=== PATIENT | female | born 1955 | race African-American/Black ===

== ENCOUNTER 2018-05-11 12:29 | Emergency (ER) | payer OTHER ==
[~2018-05-11] VITALS: Ht 154.9 cm; Wt 131.1 kg
[~2018-05-11 12:29] MED LIST: AMLODIPINE BESY10 MG PO; CARAFATE1 GM/10 ML PO; COMBIGAN EYE DRO5 ML OU; FUROSEMIDE40 MG PO; HYDROCODON-ACE1 EAC9 PO; LISINOPRIL40 MG PO; LYRICA200 MG PO; LYRICA75 MG PO; NOVOLOG MI100 UNITS/ SQ; OMEPRAZOLE40 MG PO; TIZANIDINE HCL4 M1 PO; TRAVATAN Z5 ML OP; TRAZADONE; ZOLPIDEM TARTRA10 MG PO
[2018-05-11] MEDS ORDERED: ORPHENADRINE CITRATE 30 MG/ML VIAL IM ONE (14:30)
[2018-05-11] MEDS ORDERED: KETOROLAC TROMETHAMINE 60 MG/2 ML VIAL IM ONE (14:30)
[2018-05-11 15:59] VITALS: BP 163/98
== END 2018-05-11 16:00 | disposition home or self-care (01) ==
LOC: ER 12:29
DX: M54.5 Low back pain (principal); S39.012A Strain of muscle, fascia and tendon of lower back, initial encounter; E11.9 Type 2 diabetes mellitus without complications; I50.9 Heart failure, unspecified; I10 Essential (primary) hypertension; E78.5 Hyperlipidemia, unspecified; Z85.3 Personal history of malignant neoplasm of breast
CPT/HCPCS: 99283; J1885; J2360

== ENCOUNTER 2020-05-26 12:59 | Emergency (ER) | payer MEDICARE, OTHER ==
[~2020-05-26] VITALS: Ht 154.9 cm; Wt 131.5 kg
[2020-05-26] MEDS ORDERED: LIDOCAINE VISC 2% SOLN 15 ML UDC PO ONE (14:30)
[2020-05-26] MEDS ORDERED: ONDANSETRON HCL 4 MG ORAL DISINTEGRATING TAB PO ONE (14:30)
--- OUTSIDE RECORDS SUMMARY | 2020-05-26 14:37 | XMS REPORT | Continuity of Care Document ---
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 02/23/2016 [facility] HEMATOLOGY PT 13.9 12.0 - 14.7 02/23/2016 [facility] BLOOD BANK RESULTS Antibody Scrn Negative (02/23/16 6:30 AM) 02/23/2016 [facility] BLOOD BANK RESULTS ABO/Rh AB POS 02/23/2016 [facility] Pathology Reports No Data Provided for This Section Diagnostic Reports Report Value Date Source ED Abdomen/Pelvis IV contrast only CT Patient Name: JANNET GALVAN : 1955; Age: 61 years y/o Female MR: [id number] Study: ED Abdomen/Pelvis IV contrast only CT 08/04/2017 8:17 PM [employer] Ordering Physician: Clinical Indication: Left lower quadrant abdominal pain; Comparison: None TECHNIQUE: Helical imaging was performed diaphragm through the symphysis with multiplanar reformations obtained. Dual phase imaging was performed through the abdomen and pelvis. IV CONTRAST: 100cc Omnipaque 300 GI CONTRAST: None CT Radiation Dose: DLP = 1931 mGy-cm FINDINGS: LOWER CHEST: The lung bases are clear. SOLID ORGANS: The liver, spleen, pancreas, adrenal glands and kidneys are normal. Gallbladder is surgically absent. Delayed phase images show renal contrast excretion without extravasation. BOWEL: Small bowel is within normal limits. Right lower quadrant appendix shows normal size. A few diverticula arise from the colon. Pericolonic fat planes remain preserved. PERITONEUM: Small bowel and transverse colon protrude into large anterior abdominal hernia. Hernia neck is 12.2 cm at its largest dimension on axial image 61. No free intraperitoneal fluid or air. RETROPERITONEUM: No adenopathy. The aorta is normal. PELVIS: No pelvic mass. The urinary bladder is normal. MUSCULOSKELETAL: Left T11 vertebral body shows nonspecific 0.9 x 1.4 cm sclerotic lesion on sagittal image 79. IMPRESSION: Large anterior abdominal hernia contains small bowel and transverse colon without obstruction. SL: [id number] 08/04/2017 [facility] Chest 1view DX EXAM: XR CHEST 1 VIEW DATE: 07/15/2017 11:23 PM CDT INDICATION: Chest pain. COMPARISON: 06/14/2007. TECHNIQUE: A single AP view of the chest was obtained. FINDINGS: No focal consolidation or pneumothorax is identified. The cardiomediastinal silhouette is within normal limits. The costophrenic recesses are sharp and without effusion. No acute osseous abnormality is noted. IMPRESSION: No acute cardiopulmonary abnormality. SL: [id number] 07/15/2017 [facility] Consultation Notes No Data Provided for This Section Discharge Summaries No Data Provided for This Section History and Physicals No Data Provided for This Section Vital Signs Vital Sign Value Date Comments Source Systolic (mm Hg) 147 08/06/2017 [facility] Diastolic (mm Hg) 69 08/06/2017 [facility] Respitory Rate 18 08/06/2017 [facility] Systolic (mm Hg) 147 08/06/2017 [facility] Diastolic (mm Hg) 89 08/06/2017 [facility] Respitory Rate 17 08/06/2017 [facility] Systolic (mm Hg) 132 08/06/2017 [facility] Diastolic (mm Hg) 76 08/06/2017 [facility] Respitory Rate 19 08/06/2017 [facility] Respitory Rate 23 08/05/2017 [facility] Systolic (mm Hg) 142 08/05/2017 [facility] Diastolic (mm Hg) 91 08/05/2017 [facility] Respitory Rate 17 08/05/2017 [facility] Systolic (mm Hg) 138 08/05/2017 [facility] Diastolic (mm Hg) 80 08/05/2017 [facility] Respitory Rate 20 08/05/2017 [facility] Systolic (mm Hg) 137 08/05/2017 [facility] Diastolic (mm Hg) 100 08/05/2017 [facility] Temperature Oral (F) 98.0 F 08/05/2017 [facility] Heart Rate 80 08/05/2017 [facility] Weight 130.909 08/04/2017 [facility] Height 154.94 cm 08/04/2017 [facility] BMI Calculated 54.53 08/04/2017 [facility] Temperature Oral (F) 98.2 F 08/04/2017 [facility] Heart Rate 65 08/04/2017 [facility] Height 154.94 cm 07/30/2017 [facility] BMI Calculated 54.98 07/30/2017 [facility] Weight 131.989 07/30/2017 [facility] Temperature Oral (F) 98.3 F 07/30/2017 [facility] Heart Rate 102 07/30/2017 [facility] Temperature Oral (F) 98 F 07/16/2017 [facility] Systolic (mm Hg) 143 07/16/2017 [facility] Diastolic (mm Hg) 98 07/16/2017 [facility] Systolic (mm Hg) 111 07/16/2017 [facility] Diastolic (mm Hg) 71 07/16/2017 [facility] Temperature Oral (F) 98 F 07/16/2017 [facility] Heart Rate 92 07/16/2017 [facility] Respitory Rate 18 07/16/2017 [facility] Weight 132.273 07/16/2017 [facility] BMI Calculated 55.1 07/16/2017 [facility] Height 154.94 cm 07/16/2017 [facility] Heart Rate 102 07/16/2017 [facility] Respitory Rate 20 07/16/2017 [facility] Systolic (mm Hg) 147 07/16/2017 [facility] Diastolic (mm Hg) 81 07/16/2017 [facility] Temperature Oral (F) 98.3 F 07/16/2017 [facility] Systolic (mm Hg) 147 02/23/2016 [facility] Diastolic (mm Hg) 71 02/23/2016 [facility] Systolic (mm Hg) 147 02/23/2016 [facility] Diastolic (mm Hg) 71 02/23/2016 [facility] Systolic (mm Hg) 147 02/23/2016 [facility] Diastolic (mm Hg) 71 02/23/2016 [facility] Temperature Oral (F) 98.0 F 02/23/2016 [facility] BMI Calculated 55.86 02/23/2016 [facility] Weight 134.091 02/23/2016 [facility] Height 154.94 cm 02/23/2016 [facility] Encounters Location Location Details Encounter Type Encounter Number Reason For Visit Attending Provider ADM Date DC Date Status Source [facility] Bedded Outpatient [id number] Robertomaria victoria Osullivan 02/23/2016 02/23/2016 [facility] Recurring [id number] Mary Anne Beckwith 07/10/2017 08/09/2017 [facility] Emergency [id number] Bo Lawler 07/16/2017 07/16/2017 [facility] Emergency [id number] Madi Guillen 08/04/2017 08/05/2017 [facility] Bedded Outpatient [id number] Mary Anne Beckwith 08/06/2017 08/06/2017 [facility] Outpatient [id number] Mary Anne Beckwith 08/14/2017 08/14/2017 [facility] Outpatient [id number] Bo Guzmán 10/09/2017 10/09/2017 [facility] Procedures Procedure Code Date Perfomer Comments Source Caesarean section [id number] [facility] Cholecystectomy [id number] [facility] st Hernia repair [id number] [facility] st Operation [id number] [facility] st Assessment and Plan No Data Provided for This Section Plan of Care No Data Provided for This Section Social History Social History Date Source Social History TypeResponse Substance Abuse Use: Past. Type: Cocaine. Recreational Drug Route: Inhaled, Intravenous. Alcohol Past Smoking Status Former smoker; Type: Cigarettes; Exposure to Tobacco Smoke None; Cigarette Smoking Last 365 Days No; Reg Smoking Cessation Counseling No entered on: 08/06/17 07/30/2017 [facility] No data available for this section 02/23/2016 [facility] Family History No Data Provided for This Section Advance Directives No Data Provided for This Section Functional Status No Data Provided for This Section
--- OUTSIDE RECORDS SUMMARY | 2020-05-26 14:38 | XMS REPORT | Continuity of Care Document ---
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 2019-04-23 00:00:00 84 mm[Hg] [facility] Height 2019-04-23 00:00:00 61 [in_i] [facility] BMI (Body Mass Index) 2019-04-23 00:00:00 53.7 kg/m2 [facility] BP Systolic 2019-04-23 00:00:00 142 mm[Hg] [facility] Body Weight 2019-04-23 00:00:00 284 [lb_av] [facility] BP Diastolic 2019-03-02 00:00:00 84 mm[Hg] [facility] Height 2019-03-02 00:00:00 61 [in_i] [facility] BMI (Body Mass Index) 2019-03-02 00:00:00 54.4 kg/m2 [facility] BP Systolic 2019-03-02 00:00:00 138 mm[Hg] [facility] Body Weight 2019-03-02 00:00:00 288 [lb_av] [facility] BP Diastolic 2019-02-19 00:00:00 100 mm[Hg] [facility] Height 2019-02-19 00:00:00 61 [in_i] [facility] BMI (Body Mass Index) 2019-02-19 00:00:00 54.4 kg/m2 [facility] BP Systolic 2019-02-19 00:00:00 152 mm[Hg] [facility] Body Weight 2019-02-19 00:00:00 288 [lb_av] [facility] BP Diastolic 2019-01-21 00:00:00 64 mm[Hg] [facility] Height 2019-01-21 00:00:00 61 [in_i] [facility] BMI (Body Mass Index) 2019-01-21 00:00:00 55.6 kg/m2 [facility] BP Systolic 2019-01-21 00:00:00 124 mm[Hg] [facility] Body Weight 2019-01-21 00:00:00 294 [lb_av] [facility] BP Diastolic 2018-12-10 00:00:00 68 mm[Hg] [facility] Height 2018-12-10 00:00:00 61 [in_i] [facility] BMI (Body Mass Index) 2018-12-10 00:00:00 54.6 kg/m2 [facility] BP Systolic 2018-12-10 00:00:00 124 mm[Hg] [facility] Body Weight 2018-12-10 00:00:00 289 [lb_av] [facility] BP Diastolic 2018-11-23 00:00:00 82 mm[Hg] [facility] Height 2018-11-23 00:00:00 61 [in_i] [facility] BMI (Body Mass Index) 2018-11-23 00:00:00 54 kg/m2 [facility] BP Systolic 2018-11-23 00:00:00 126 mm[Hg] [facility] Body Weight 2018-11-23 00:00:00 286 [lb_av] [facility] BP Diastolic 2018-10-30 00:00:00 80 mm[Hg] [facility] Height 2018-10-30 00:00:00 61 [in_i] [facility] BMI (Body Mass Index) 2018-10-30 00:00:00 54.6 kg/m2 [facility] BP Systolic 2018-10-30 00:00:00 126 mm[Hg] [facility] Body Weight 2018-10-30 00:00:00 289 [lb_av] [facility] BP Systolic 2017-09-25 10:20:00 117 mm[Hg] Location: JON Laguerre on: Sitting [facility] BP Diastolic 2017-09-25 10:20:00 77 mm[Hg] Location: JON Laguerre on: Sitting [facility] Height 2017-09-25 10:20:00 61 [in_us] [facility] Weight 2017-09-25 10:20:00 286.0625 [lb_av] [facility] Body Mass Index Calculated 2017-09-25 10:20:00 54.05 kg/m2 [facility] Temperature 2017-09-25 10:20:00 98.6 [degF] Method: Oral [facility] Heart Rate 2017-09-25 10:20:00 85 /min [facility] Systolic (mm Hg) 2017-08-06 15:15:00 [facility] Diastolic (mm Hg) 2017-08-06 15:15:00 [facility] Respitory Rate 2017-08-06 15:15:00 [facility] Systolic (mm Hg) 2017-08-06 15:00:00 [facility]ar rial [facility] Diastolic (mm Hg) 2017-08-06 15:00:00 [facility] Respitory Rate 2017-08-06 15:00:00 [facility] Systolic (mm Hg) 2017-08-06 14:56:00 [facility] Diastolic (mm Hg) 2017-08-06 14:56:00 [facility] Respitory Rate 2017-08-06 14:56:00 [facility] Respitory Rate 2017-08-05 05:30:00 [facility] Systolic (mm Hg) 2017-08-05 05:30:00 [facility] Diastolic (mm Hg) 2017-08-05 05:30:00 [facility] Respitory Rate 2017-08-05 04:30:00 [facility] Systolic (mm Hg) 2017-08-05 04:30:00 [facility] Diastolic (mm Hg) 2017-08-05 04:30:00 [facility] Respitory Rate 2017-08-05 03:30:00 [facility] Systolic (mm Hg) 2017-08-05 03:30:00 [facility] Diastolic (mm Hg) 2017-08-05 03:30:00 [facility] Temperature Oral (F) 2017-08-05 00:10:00 98.0 F [facility] Heart Rate 2017-08-05 00:10:00 [facility] Weight 2017-08-04 18:27:00 [facility] Height 2017-08-04 18:27:00 154.94 cm [facility] BMI Calculated 2017-08-04 18:27:00 [facility] Temperature Oral (F) 2017-08-04 18:27:00 98.2 F [facility] Heart Rate 2017-08-04 18:27:00 [facility] Height 2017-07-30 16:50:00 154.94 cm [facility] BMI Calculated 2017-07-30 16:50:00 [facility] Weight 2017-07-30 16:50:00 [facility] Temperature Oral (F) 2017-07-30 16:50:00 98.3 F [facility] Heart Rate 2017-07-30 16:50:00 [facility] Temperature Oral (F) 2017-07-16 09:46:00 98 F [facility] Systolic (mm Hg) 2017-07-16 09:46:00 [facility] Diastolic (mm Hg) 2017-07-16 09:46:00 [facility] Systolic (mm Hg) 2017-07-16 04:55:00 [facility] Diastolic (mm Hg) 2017-07-16 04:55:00 [facility] Temperature Oral (F) 2017-07-16 04:53:00 98 F [facility] Heart Rate 2017-07-16 04:53:00 [facility] Respitory Rate 2017-07-16 04:53:00 [facility] Weight 2017-07-16 03:25:00 [facility] BMI Calculated 2017-07-16 03:25:00 [facility] Height 2017-07-16 03:25:00 154.94 cm [facility] Heart Rate 2017-07-16 03:25:00 [facility] Respitory Rate 2017-07-16 03:25:00 [facility] Systolic (mm Hg) 2017-07-16 03:25:00 [facility] Diastolic (mm Hg) 2017-07-16 03:25:00 [facility] Temperature Oral (F) 2017-07-16 03:25:00 98.3 F [facility] BP Systolic 2017-07-09 08:51:00 121 mm[Hg] [facility] BP Diastolic 2017-07-09 08:51:00 79 mm[Hg] [facility] Height 2017-07-09 08:51:00 61 [in_us] [facility] Weight 2017-07-09 08:51:00 296 [lb_av] [facility] Body Mass Index Calculated 2017-07-09 08:51:00 55.93 kg/m2 [facility] Heart Rate 2017-07-09 08:51:00 90 /min [facility] Systolic (mm Hg) 2016-02-23 15:30:00 [facility] Diastolic (mm Hg) 2016-02-23 15:30:00 [facility] Systolic (mm Hg) 2016-02-23 15:15:00 [facility] Diastolic (mm Hg) 2016-02-23 15:15:00 [facility] Systolic (mm Hg) 2016-02-23 15:00:00 [facility] Diastolic (mm Hg) 2016-02-23 15:00:00 [facility] Temperature Oral (F) 2016-02-23 14:00:00 98.0 F [facility] BMI Calculated 2016-02-23 11:06:00 [facility] Weight 2016-02-23 11:06:00 [facility] Height 2016-02-23 11:06:00 154.94 cm [facility] Procedures Procedure Date / Time Performed Performing Clinician [facility] e MAMMO, screening, bilateral 2020-05-17 00:00:00 [facility] bone density 2020-05-17 00:00:00 [facility] US, echocardiogram, transthoracic, complete, w/ color flow 2 00:00:00 [facility] bone density 2019-07-26 00:00:00 [facility] X-RAY CERVICAL SPINE 2 OR 3 VIEW 2019-06-08 00:00:00 [facility] MAMMO, screening, bilateral 2019-04-23 00:00:00 [facility] ankle brachial index 2019-04-23 00:00:00 [facility] electrocardiogram 2019-01-21 00:00:00 [facility] Hernia Repair 2019-01-02 00:00:00 [facility] US, ABDOMINAL COMPLETE 2018-12-10 00:00:00 [facility] [[facility]] FOLATE, SERUM 2017-07-10 00:00:00 [facility] [[facility]] PTH, INTACT (WITHOUT CALCIUM) 2017-07-10 00:00:00 [facility] [QL] VITAMIN B1, WHOLE BLOOD 2017-07-10 00:00:00 [facility] [[facility]] VITAMIN E (TOCOPHEROL) 2017-07-10 00:00:00 [facility] [L] Vitamin D, 25-Hydroxy, Total - Esoterix 2017-07-10 00:00:00 [facility] [[facility]] IRON, TOTAL 2017-07-10 00:00:00 [facility] [[facility]] VITAMIN A (RETINOL) 2017-07-10 [facility]] VITAMIN B12 2017-07-10 00:00:00 [facility] [QL] B TYPE NATRIURETIC PEPTIDE (BNP) 2017-06-19 00:00:00 [facility] [[facility]] CMP W/EGFR 2017-06-19 00:00:00 [facility] [[facility]] LIPID PANEL 2017-06-19 00:00:00 [facility] [[facility]] TSH, 3RD GENERATION 2017-06-19 00:00[facility]00 [facility]] CBC (INCLUDES DIFF/PLT) 2017-06-19 00:00:00 [facility] [QL] HEMOGLOBIN A1c 2017-06-19 00:00:00 [facility] [[facility]] MAGNESIUM 2017-06-19 00:00:00 [place] [facility] [[facility]] PROTHROMBIN TIME-INR 2017-06-19 00:00:00 [facility] 2012-09-29 00:00:00 [facility] Breast Surgery 2001-09-29 00:00:00 [facility] Cholecystectomy (Gall Bladder Removal) 1999-09-29 00:00:00 [facility] Caesarean Section 1974-09-29 00:00:00 [facility] Caesarean Section 1971-09-29 00:00:00 [facility] History of sleep study [facility] History of colonoscopy [facility] History of section [facility] History of cholecystectomy [facility] Hernia repair [facility] Plan of Care Planned Activity Planned Date Details Comments Source Diagnostic Test Pending 2020-05-17 00:00:00 HbA1c (hemoglobi n A1c), blood [code = HbA1c (hemoglobin A1c), blood] [facility] 2020-05-17 00:00:00 microalbumin/cre atinine, mass ratio, urine [code = microalbumin/creatinine, mass ratio, urine] [facility] Diagnostic Test Pending 2020-05-17 00:00:00 CMP, serum or pl asma [code = CMP, serum or plasma] [facility] Diagnostic Test Pending 2020-05-17 00:00:00 lipid panel, ser um [code = lipid panel, serum] [facility] Future Appointment 2020-08-16 10:45:00 Medardo Farnsworth Jr [address]; [address], [place] [address] [facility] Encounters Start Date/Time End Date/Time Encounter Type Admission Type Attendi [facility] Care Department Encounter ID Source 2020-05-17 00:00:00 2020-05-17 00:00:00 Medardo Farnsworth Jr, MD: [address], [address], [place] [address], Ph. [facility] [id number] [facility] 2020-03-08 00:00:00 2020-03-08 00:00:00 Ruthie Thomasom: [address] [facility], [address], [place] [address], Ph. [facility] - VM_HOU_Care Management [id number] [facility] 2020-01-24 00:00:00 2020-01-24 00:00:00 Medardo Farnsworth Jr, MD: [address], [address], [place] [address], Ph. [facility] - VM_HOU_Hobby [id number] [facility] 2019-12-06 00:00:00 2019-12-06 00:00:00 Medardo Farnsworth Jr, MD: [address], [address], [place] [address], Ph. [facility] - VM_HOU_Hobby [id number] [facility] 2019-10-25 00:00:00 2019-10-25 00:00:00 Medardo Farnsworth Jr, MD: [address], [address], [place] [address], Ph. [facility] - VM_HOU_Hobby [id number] [facility] 2019-07-26 00:00:00 2019-07-26 00:00:00 Medardo Farnsworth Jr, MD: [address], [facility] [address], [place] [address], Ph. [facility] VFP-Hobby [id number] [facility] 2019-06-08 00:00:00 2019-06-08 00:00:00 Medardo Farnsworth Jr, MD: [address] [facility] [address], [place] [address], Ph. [facility] - VFP-Hobby [id number] [facility] 2019-04-23 00:00:00 2019-04-23 00:00:00 Medardo Farnsworth Jr, MD: [address], [address], [place] [address], Ph. [facility] - [facility] - VFP-Hobby [id number] [facility] 2019-03-02 00:00:00 2019-03-02 00:00:00 Medardo Farnsworth Jr, MD: [address], [address], [place] [address], Ph. [facility] - VFP-Hobby [id number] [facility] 2019-02-19 00:00:00 2019-02-19 00:00:00 Medardo Farnsworth Jr, MD: [address], [address], [place] [address], Ph. [facility] - VFP-Hobby [id number] [facility] 2019-01-21 00:00:00 2019-01-21 00:00:00 Medardo Farnsworth Jr, MD: [address], [address], [place] [address], Ph. [facility] - VFP-Hobby [id number] [facility] 2018-12-10 00:00:00 2018-12-10 00:00:00 Medardo Farnsworth Jr, MD: [address], [address], [place] [address], Ph. [facility] - VFP-Hobby [id number] [facility] 2018-11-23 00:00:00 2018-11-23 00:00:00 Medardo Farnsworth Jr, MD: [address], [place] [address], Ph. [facility] - [facility] - VFP-Hobby [id number] [facility] 2018-10-30 00:00:00 2018-10-30 00:00:00 Medardo Farnsworth Jr, MD: [address], [address], [place] [address], Ph. [facility] - [facility] - VFP-Hobby [id number] [facility] 2018-05-11 12:29:00 2018-05-11 16:00:00 Departed Emergency Room [facility] [id number] [facility] 2017-10-08 18:35:00 2017-10-08 23:59:00 Outpatient Sheyla Guzmán MHSE MHSE [id number] 2017-10-08 18:35:00 2017-10-08 23:59:00 Outpatient Sheyla Guzmán MHSE MHSE [id number] 2017-09-25 10:30:00 2017-09-25 10:30:00 Appointment; MARY ANNE BECKWITH M.D. PARKER, AMANDA, M.D. [facility] [id number] [facility] 2017-08-18 13:45:00 2017-08-18 13:45:00 Appointment; MARY ANNE BECKWITH M.D. PARKER, AMANDA, M.D. [facility] [id number] [facility] 2017-08-13 19:23:00 2017-08-13 23:59:00 Outpatient Carri Beckwith MHSE MHSE [id number] 2017-07-10 11:21:00 2017-08-08 23:59:00 Outpatient Carri Beckwith MHSE MHSE [id number] 2017-08-06 06:24:00 2017-08-06 09:35:00 Outpatient Carri Beckwith MHSE MHSE [id number] 2017-08-04 12:09:00 2017-08-04 23:32:00 Outpatient Pita Guillen MHSE MHSE [id number] 2017-07-15 22:20:00 2017-07-16 04:48:00 Outpatient Katelin Lawler MHSE MHSE [id number] 2017-07-10 11:30:00 2017-07-10 11:30:00 Appointment; MARY ANNE BECKWITH M.D. PARKER, AMANDA, M.D. [facility] UTP [id number] [facility] 2017-07-09 09:20:00 2017-07-09 09:20:00 Appointment; SETH MORAES M.D. ESCOBAR CAMARGO, JORGE, M.D. [facility] UTP [id number] [facility] 2017-07-03 11:00:00 2017-07-03 11:00:00 Appointment; SE, ECHO SE, ECHO UTP UTP [id number] [facility] 2017-06-19 10:20:00 2017-06-19 10:20:00 Appointment; SETH MORAES M.D. ESCOBAR CAMARGO, JORGE, M.D. [facility] UTP [id number] [facility] 2017-06-09 13:00:00 2017-06-09 13:00:00 Appointment; MARY ANNE BECKWITH M.D. PARKER, AMANDA, M.D. [facility] UTP [id number] [facility] 2017-06-03 12:00:00 2017-06-03 12:00:00 Appointment; JOELLEN CEBALLOS ERIK UTP UTP [id number] [facility] 2016-02-23 05:54:00 2016-02-23 10:50:00 Outpatient Roberto Almanza [facility] [id number] Results Test Description Test Time Test Comments Results Result Comments Source - XR KNEE 1 OR 2 V LT 2020-04-19 12:02:00 FAX: Medardo Arreola Jr [phone] [address] [place]: [address] St: REG FAX: Andres Gates MD [phone] Name: JANNET GALVAN [facility] : 1955 Age/S: 64/F [address] Unit #: [id number] Loc: [place] [address] Phys: Andres Zuniga MD Acct: [id number] Dis Date: Status: REG CLI PHONE #: [phone] Exam Date: 04/19/2020 1125 FAX #: [phone] Reason: M25.562 EXAMS: CPT CODE: [id number] XR KNEE 1 OR 2 V LT [address] CLINICAL HISTORY: M25.562 TECHNIQUE: 2 views of the left knee COMPARISON: Left knee radiographs January 01, 2013 FINDINGS/ IMPRESSION: There is worsening joint space narrowing in the left knee, compatible with worsening degeneration. Large marginal osteophytes are present. No joint effusion is seen and there is no fracture. Location: [facility] at 1202 Reported and signed by: Too Canela MD CC: Medardo Farnsworth Jr, MD; Andres Zuniga MD Technologist: Gayle Meier RT(R) Trnscrd Date/Time/By: 04/19/2020 (6998) : By: [email or web address] Orig Print D/T: S: 04/19/2020 (2975) PAGE 1 Signed Report - XR C-SPINE 2-3 VIEWS 2019-08-06 15:45:00 FAX: Medardo Arreola Jr [phone] [facility] [place]: O St: REG -- Name: JANNET GALVAN [facility] : 1955 Age/S: 63/F [address] [facility] Unit #: [id number] Loc: [place] [address] Phys: Medardo Farnsworth Jr, MD Acct: [id number] Dis Date: Status: REG CLI PHONE #: [phone] Exam Date: 08/06/2019 1248 FAX #: [phone] Reason: CERVICAL RAD EXAMS: CPT CODE: [id number] XR C-SPINE 2-3 VIEWS 03869 HISTORY: CERVICAL RAD TECHNIQUE: AP, lateral, and open mouth odontoid views of the cervical spine. COMPARISON: CT of the cervical spine March 01, 2015 FINDINGS: Findings are somewhat limited due to nonvisualization of the C6 and C7 vertebral bodies on the sagittal views. Within the visualized spine and there is no evident fracture or malalignment. There is mild height loss of the C5 vertebral body. Small vertebral body osteophyte are present on C4 and C5. Intervertebral disc spaces are preserved. Prevertebral soft tissues in the lung apices are unremarkable. IMPRESSION: Limited evaluation. Mild degenerative changes in the visualized cervical spine. Location: [facility] at 1545 Reported and signed by: Too Canela MD CC: Medardo Farnsworth Jr, MD Technologist: Dianelys King(R) Trnscrd Date/Time/By: 08/06/2019 (3941) : By: [email or web address] Orig Print D/T: S: 08/06/2019 (4494) PAGE 1 Signed Report Chlamydia trachomatis+Neisseria gonorrho eae rRNA [Presence] in Urine by DNA probe 2019-02-23 10:08:00 Test Item chlamydia trachomatis (urine) molecular assay (test code = chlamydia trachomatis (urine) molecular assay) not detected neisseria gonorrhoeae (urine) molecular assay (test code = neisseria gonorrhoeae (urine) molecular assay) not detected [facility]Neisseria gonorrhoeae rRNA [Presence] in Urine by DNA [id number] 10:08:00* Test Item Value Reference Range Interpretation Comments chlamydia trachomatis (urine) molecular assay (test code = chlamydia trachomatis (urine) molecular assay) not detected neisseria gonorrhoeae (urine) molecular assay (test code = neisseria gonorrhoeae (urine) molecular assay) not detected [facility] Urine by [id number] 06:49:00* Test Item Value Reference Range Interpretation Comments culture, urine, routine (test code = culture, urine, routine) [place] [facility] PracticeB[facility] identified in Urine by [id number] 06:49:00* Test Item Value Reference Range Interpretation Comments culture, urine, routine (test code = culture, urine, routine) see [place] [facility] PracticeReagin Ab [Units/volume] in Serum by [id number] 06:25:00* Test Item Value Reference Range Interpretation Comments RPR (DX) w/refl titer and confirmatory t esting (test code = RPR (DX) w/refl titer and confirmatory testing) non-reactive non-reactive [facility] Ag and abs screen, 4TH gen. w/rflx ([id number]) 2019-02-21 06:25:00* Test Item Value Reference Range Interpretation Comments HIV Ag/Ab, 4TH gen (test code = HIV Ag/Ab, 4TH gen) non-reactive no n-reactive [facility] [Units/volume] in Serum by [id number] 06:25:00* Test Item Value Reference Range Interpretation Comments RPR (DX) w/refl titer and confirmatory t esting (test code = RPR (DX) w/refl titer and confirmatory testing) non-reactive non-reactive [facility] Ag and abs screen, 4TH gen. w/rflx ([id number]) 2019-02-21 06:25:00* Test Item Value Reference Range Interpretation Comments HIV Ag/Ab, 4TH gen (test code = HIV Ag/Ab, 4TH gen) non-reactive no n-reactive [facility]Hemoglobin A1c/Hemoglobin.total in [id number] 16:32:00* Test Item Value Reference Range Interpretation Comments Hemoglobin A1c/Hemoglobin.total in Blood (test code = 4548-4) 6.8 % 1.0-5.7 H average blood glucose (test code = average blood glucose) 148 mg/dL [facility]Hemoglobin A1c/Hemoglobin.total in [id number] 16:32:00* Test Item Value Reference Range Interpretation Comments Hemoglobin A1c/Hemoglobin.total in Blood (test code = 4548-4) 6.8 % 1.0-5.7 H average blood glucose (test code = average blood glucose) 148 mg/dL [facility] [Mass/volume] in Capillary [id number] 11:55:00* Test Item Value Reference Range Interpretation Comments Blood Glucose: mg/dl (test code = Blood Glucose: mg/dl) 125 [facility] [Mass/volume] in Capillary [id number] 11:55:00* Test Item Value Reference Range Interpretation Comments Blood Glucose: mg/dl (test code = Blood Glucose: mg/dl) [address] [place], [place] [address]Urinalysis macro (dipstick) panel - [id number] 11:54:00* Test Item Value Reference Range Interpretation Comments Color Color (test code = Color Color) light yellow Color Appearance (test code = Color Appearance) clear Color Glucose (test code = Color Glucose) negative Color Bilirubin (test code = Color Bilirubin) negative Color Ketones (test code = Color Ketones) trace Color Specific [place] (test code = Color Specific [place]) 1.030 Color Blood (test code = Color Blood) negative Color PH (test code = Color PH) 6.0 Color Protein (test code = Color Protein) 30 Color Urobilinogen (test code = Color Urobilinogen) 0.2 Color Nitrites (test code = Color Nitrites) negative Color Leukocytes (test code = Color Leukocytes) [facility] (dipstick) panel - [id number] 11:54:00* Test Item Value Reference Range Interpretation Comments Color Color (test code = Color Color) light yellow Color Appearance (test code = Color Appearance) clear Color Glucose (test code = Color Glucose) negative Color Bilirubin (test code = Color Bilirubin) negative Color Ketones (test code = Color Ketones) trace Color Specific [place] (test code = Color Specific [place]) 1.030 Color Blood (test code = Color Blood) negative Color PH (test code = Color PH) 6.0 Color Protein (test code = Color Protein) 30 Color Urobilinogen (test code = Color Urobilinogen) 0.2 Color Nitrites (test code = Color Nitrites) negative Color Leukocytes (test code = Color Leukocytes) [facility]Com[facility] 2000 [facility] - Serum or Plasma 2019-01-22 00:00:00* Test Item Value Reference Range Interpretation Comments ALT (test code = ALT) 11 U/L 0-55 AST (test code = AST) 12 U/L 5-34 BUN (test code = BUN) 16.4 mg/dL 9.8-20.1 alk phos (test code = alk phos) 58 unit/L 40-150 glucose (test code = glucose) 117 mg/dL 70-99 H albumin (test code = albumin) 3.5 g/dL 3.5-5.0 creatinine (test code = creatinine) 0.98 mg/dL 0.57-1.11 eGFR non- (test code = eGFR non-vitaliy n mongolian) 58 mL/min/1.73m2 A total bilirubin (test code = total bilirubin) 0.2 mg/dL 0.2-1.2 eGFR - (test code = eGFR - ) >60 sodium (test code = sodium) 141 mEq/L 136-145 potassium (test code = potassium) 4.3 mEq/L 3.5-5.1 chloride (test code = chloride) 103 mmol/L 98-107 total protein (test code = total protein) 7.3 g/dL 6.4-8.3 calcium (test code = calcium) 9.7 mg/dL 8.6-10.4 CO2 (test code = CO2) 26.7 mmol/L 23.0-31.0 anion gap (test code = anion gap) 11 [facility] - Serum or Plasma 2019-01-22 00:00:00* Test Item Value Reference Range Interpretation Comments ALT (test code = ALT) 11 U/L 0-55 AST (test code = AST) 12 U/L 5-34 BUN (test code = BUN) 16.4 mg/dL 9.8-20.1 alk phos (test code = alk phos) 58 unit/L 40-150 glucose (test code = glucose) 117 mg/dL 70-99 H albumin (test code = albumin) 3.5 g/dL 3.5-5.0 creatinine (test code = creatinine) 0.98 mg/dL 0.57-1.11 eGFR non- (test code = eGFR non-vitaliy n mongolian) 58 mL/min/1.73m2 A total bilirubin (test code = total bilirubin) 0.2 mg/dL 0.2-1.2 eGFR - (test code = eGFR - ) >60 sodium (test code = sodium) 141 mEq/L 136-145 potassium (test code = potassium) 4.3 mEq/L 3.5-5.1 chloride (test code = chloride) 103 mmol/L 98-107 total protein (test code = total protein) 7.3 g/dL 6.4-8.3 calcium (test code = calcium) 9.7 mg/dL 8.6-10.4 CO2 (test code = CO2) 26.7 mmol/L 23.0-31.0 anion gap (test code = anion gap) 11 calc [facility] [id number] 16:38:00* Test Item Value Reference Range Interpretation Comments Rate & Rhythm (test code = Rate & Rhythm) sinus regular. QRS (test code = QRS) MI Interval (test code = MI Interval) QRS Duration (test code = QRS Duration) QT Interval (test code = QT Interval) [facility] [id number] 16:38:00* Test Item Value Reference Range Interpretation Comments Rate & Rhythm (test code = Rate & Rhythm) sinus regular. QRS (test code = QRS) MI Interval (test code = MI Interval) QRS Duration (test code = QRS Duration) QT Interval (test code = QT Interval) [facility]:54[facility]* Test Item Value Reference Range Interpretation Comments GLUBED (test code = GLUBED) 151 mg/dL 74-106 H Performed by certified verifying machine operator at [facility] [id number] 07:56:00* Test Item Value Reference Range Interpretation Comments GLUBED (test code = GLUBED) 172 mg/dL 74-106 H Performed by certified verifying machine operator at [facility] URINALYSIS [id number] 05:37:00* Test Item Value Reference Range Interpretation Comments UA COLOR (test code = COLU) LIGHT YELLOW YELLOW UA APPEARANCE (test code = APPU) CLEAR CLEAR UA GLUCOSE DIPSTICK (test code = DGLUU) NEGATIVE mg/dL NEGATIVE UA BILIRUBIN DIPSTICK (test code = BILU) NEGATIVE mg/dL NEGATIVE UA KETONE DIPSTICK (test code = KETU) NEGATIVE mg/dL NEGATIVE UA SPECIFIC GRAVITY (test code = SGU) 1.010 1.001-1.035 UA BLOOD DIPSTICK (test code = BETTY) 3+ (Large) mg/dL NEGATIVE A UA PH DIPSTICK (test code = SYLVESTER) 6.0 5.0-8.0 UA PROTEIN DIPSTICK (test code = PROU) NEGATIVE mg/dL NEGATIVE UA UROBILINIOGEN DIPSTICK (test code = URO) NEGATIVE mg/dL NEGATIVE UA NITRITE DIPSTICK (test code = CAMILO) NEGATIVE NEGATIVE UA LEUKOCYTE ESTERASE W REFLEX (test code = LEUUR) NEGATIVE Lucio/uL NEGATIVE UA WBC (test code = WBCU) 6-10 per HPF 0-5 A UA RBC (test code = RBCU) >20 #/HPF 0-5 A UA EPITHELIAL CELLS (test code = EPIU) FEW per HPF FEW UA BACTERIA (test code = BACU) FEW #/HPF NONE A Urine Source? Clean Catch- XR CHEST 1 [id number] 05:21:00 FAX: Ramesh Cardenas MD [place]: St: ADM FAX: Sharif Medardo Farnsworth [phone] Name: COLEJANNET DODGE [facility] : 1955 Age/S: 63/F [address] [facility] Unit #: [id number] Loc: V.3027 [place] [address] Phys: Ramesh Ojeda MD Acct: [id number] Dis Date: Status: ADM IN PHONE #: [phone] Exam Date: 01/02/2019529 FAX #: [phone] Reason: fever, tachycardia. I nfectious w/u EXAMS: CPT CODE: [id number] XR CHEST 1 V 48090 - XR CHEST 1 V, 01/02/2019 3:40 AM Reason For [place]: fever, tachycardia. Infectious w/u Comparison: October 12, 2016 Location: R16 Findings Low lung volumes and patient habitus limit evaluation LUNGS: Vascular congestion/mild edema noted PLEURA: No pleural effusions CARDIOMEDIASTINAL SILHOUETTE Enlarged IMPRESSION: Exam findings limited as above Enlargement of the cardiac silhouette with vascular congestion and mild edema at 0521 Reported and si gned by: Coty Logan M.D. CC: Ramesh Ojead MD; Medardo Farnsworth Jr, MD Technologist: DWAYNE ANDREWS, RT(R); Tiarra Tse Trnscrd Date/Time/By: 01/02/2019 (05) : By: [email or web address] O rig Print D/T: S: 01/02/2019 (0582) PAGE 1 Signed Report [id number] 02:41:00 * Test Item Value Reference Range Interpretation Comments GLUBED (test code = GLUBED) 135 mg/dL 74-106 H Performed by certified verifying machine operator at [facility] [id number] 20:39:00* Test Item Value Reference Range Interpretation Comments GLUBED (test code = GLUBED) 177 mg/dL 74-106 H Performed by certified verifying machine operator at [facility] [id number] 16:43:00* Test Item Value Reference Range Interpretation Comments GLYCOSYLATED HEMOGLOBIN (HA1C) (test code = GLYHGB) 7.8 % HbA1 4. 8-6.0 H ESTIMATED AVERAGE GLUCOSE (test code = EAG) 177 MG/DL [id number] 16:31:00* Test Item Value Reference Range Interpretation Comments GLUBED (test code = GLUBED) 153 mg/dL 74-106 H Performed by certified verifying machine operator at [facility] [id number] 12:36:00* Test Item Value Reference Range Interpretation Comments GLUBED (test code = GLUBED) 155 mg/dL 74-106 H Performed by certified verifying machine operator at [facility] CBC W/AUTO [id number] 10:40:00* Test Item Value Reference Range Interpretation Comments WHITE BLOOD CELL (test code = WBC) 11.7 K/mm3 4.5-12.5 N RED BLOOD CELL (test code = RBC) 3.60 mill/mm3 3.7-5.2 L HEMOGLOBIN (test code = HGB) 9.7 gram/dL 11.5-15.5 L HEMATOCRIT (test code = HCT) 33.4 % 36.0-46.0 L MEAN CELL VOLUME (test code = MCV) 92.8 fL 80-98 N MEAN CELL HGB (test code = MCH) 26.9 picogram 27.0-33.0 L MEAN CELL HGB CONCETRATION (test code = MCHC) 29.0 gram/dL 33.0-36. 0 L RED CELL DISTRIBUTION WIDTH (test code = RDW) 13.3 % 11.6-16. 2 N RED CELL DISTRIBUTION WIDTH SD (test code = RDW-SD) 45.2 fL 37 .0-51.0 N PLATELET COUNT (test code = PLT) 287 K/mm3 150-450 N MEAN PLATELET VOLUME (test code = MPV) 10.7 fL 6.7-11.0 N NEUTROPHIL % (test code = NT%) 60.5 % 39.0-69.0 N IMMATURE GRANULOCYTE % (test code = IG%) 0.3 % 0.0-5.0 N LYMPHOCYTE % (test code = LY%) 28.2 % 25.0-55.0 N MONOCYTE % (test code = MO%) 10.2 % 0.0-10.0 H EOSINOPHIL % (test code = EO%) 0.5 % 0.0-5.0 N BASOPHIL % (test code = BA%) 0.3 % 0.0-1.0 N NUCLEATED RBC % (test code = NRBC%) 0.0 % 0-0 N NEUTROPHIL # (test code = NT#) 7.10 K/mm3 1.8-7.7 N IMMATURE GRANULOCYTE # (test code = IG#) 0.03 x10 3/uL 0-0.03 N LYMPHOCYTE # (test code = LY#) 3.30 K/mm3 1.0-5.0 N MONOCYTE # (test code = MO#) 1.20 K/mm3 0-0.8 H EOSINOPHIL # (test code = EO#) 0.06 K/mm3 0.0-0.5 N BASOPHIL # (test code = BA#) 0.03 K/mm3 0.0-0.2 N NUCLEATED RBC # (test code = NRBC#) 0.00 K/mm3 0.0-0.1 N MANUAL DIFF REQUIRED (test code = MDIFF) [place] [id number] 08:21:00* Test Item Value Reference Range Interpretation Comments GLUBED (test code = GLUBED) 139 mg/dL 74-106 H Performed by certified verifying machine operator at [facility] BASIC METABOLIC [id number] 07:58:00* Test Item Value Reference Range Interpretation Comments SODIUM (test code = NA) 139 mmol/L 136-145 N POTASSIUM (test code = K) 5.0 mmol/L 3.5-5.1 N CHLORIDE (test code = CL) 108.0 mmol/L 98-107 H CARBON DIOXIDE (test code = CO2) 20.0 mmol/L 21-32 L ANION GAP (test code = GAP) 16.0 10-20 N GLUCOSE (test code = GLU) 158 mg/dL 74-106 H BLOOD UREA NITROGEN (test code = BUN) 20 mg/dL 7-18 H GLOMERULAR FILTRATION RATE (test code = GFR) > 60 mL/min >=60 Estimated GFR by using Modified MDRD formula.Chronic kidney disease is defined as either kidney damageor GFR <60 mL/min/1.73 m2 for >3 months. CREATININE (test code = CREAT) 0.90 mg/dL 0.55-1.02 N Note change in reference range due to change in reagent. BUN/CREATININE RATIO (test code = BUN/CREA) 22.2 10-20 H CALCIUM (test code = CA) 8.1 mg/dL 8.5-10.1 L LIPID PROFILE (CORONARY RISK)2019-01-01 07:58:00* Test Item Value Reference Range Interpretation Comments TRIGLYCERIDES (test code = TRIG) 95 mg/dL 20-150 N CHOLESTEROL (test code = CHOL) 143 mg/dL 0-200 N CHOLESTEROL/HDL RATIO (test code = CHOLHDL) 1.0 RATIO 0-4.9 N RISK ASSOCIATED WITH CHOL/HDL RATIOS: Risk Male Female1/2 AVERAGE 3.43 3.27AVERAGE 4.97 4.442X AVERAGE 9.55 7.053X AVERAGE 23.39 11.04 REFERENCE VALUE IS RELATED TO RISK LEVELS ASRECOMMENDED BY THE ENIO. HEART, LUNG, AND BLOOD INST. HDL CHOLESTEROL (test code = HDL) 79 mg/dL 40-60 H LIPOPROTEIN LDL (test code = LDL) 47 mg/dL 100-129 L Reference Interval: mg/dL mmol/L Optimal <100 <2.6Near/above optimal 100-129 2.6- 3.3Borderline High 130-159 3.4-4.1High 160-189 4.1-4.9Very High >=190 >=4.9========= This LDL result is a direct measurement.========= BASIC METABOLIC [id number] 07:24:00* Test Item Value Reference Range Interpretation Comments SODIUM (test code = NA) 139 mmol/L 136-145 N POTASSIUM (test code = K) 5.0 mmol/L 3.5-5.1 N CHLORIDE (test code = CL) 108.0 mmol/L 98-107 H CARBON DIOXIDE (test code = CO2) mmol/L 21-32 ANION GAP (test code = GAP) 10-20 GLUCOSE (test code = GLU) mg/dL 74-106 BLOOD UREA NITROGEN (test code = BUN) mg/dL 7-18 GLOMERULAR FILTRATION RATE (test code = GFR) mL/min >=60 CREATININE (test code = CREAT) mg/dL 0.55-1.02 BUN/CREATININE RATIO (test code = BUN/CREA) 10-20 CALCIUM (test code = CA) mg/dL 8.5-10.1 LIPID PROFILE (CORONARY RISK)2019-01-01 07:24:00* Test Item Value Reference Range Interpretation Comments TRIGLYCERIDES (test code = TRIG) mg/dL 20-150 CHOLESTEROL (test code = CHOL) mg/dL 0-200 CHOLESTEROL/HDL RATIO (test code = CHOLHDL) RATIO 0-4.9 HDL CHOLESTEROL (test code = HDL) mg/dL 40-60 LIPOPROTEIN LDL (test code = LDL) mg/dL 100-129 [id number] 21:07:00* Test Item Value Reference Range Interpretation Comments GLUBED (test code = GLUBED) 188 mg/dL 74-106 H Performed by certified verifying machine operator at [facility] [id number] 16:52:00* Test Item Value Reference Range Interpretation Comments GLUBED (test code = GLUBED) 202 mg/dL 74-106 H Performed by certified verifying machine operator at [facility] [id number] 10:37:00* Test Item Value Reference Range Interpretation Comments GLUBED (test code = GLUBED) 137 mg/dL 74-106 H Performed by certified verifying machine operator at [facility] [id number] 09:41:00* Test Item Value Reference Range Interpretation Comments GLUBED (test code = GLUBED) 109 mg/dL 74-106 H Performed by certified verifying machine operator at [facility] BASIC METABOLIC [id number] 16:17:00* Test Item Value Reference Range Interpretation Comments SODIUM (test code = NA) 137 mmol/L 136-145 N POTASSIUM (test code = K) 3.7 mmol/L 3.5-5.1 N CHLORIDE (test code = CL) 101.0 mmol/L 98-107 N CARBON DIOXIDE (test code = CO2) 28.0 mmol/L 21-32 N ANION GAP (test code = GAP) 11.7 10-20 N GLUCOSE (test code = GLU) 112 mg/dL 74-106 H BLOOD UREA NITROGEN (test code = BUN) 25 mg/dL 7-18 H GLOMERULAR FILTRATION RATE (test code = GFR) 55 mL/min >=60 Estimated GFR by using Modified MDRD formula.Chronic kidney disease is defined as either kidney damageor GFR <60 mL/min/1.73 m2 for >3 months. CREATININE (test code = CREAT) 1.20 mg/dL 0.55-1.02 H Note change in reference range due to change in reagent. BUN/CREATININE RATIO (test code = BUN/CREA) 20.8 10-20 H CALCIUM (test code = CA) 9.3 mg/dL 8.5-10.1 N BASIC METABOLIC [id number] 16:05:00* Test Item Value Reference Range Interpretation Comments SODIUM (test code = NA) 137 mmol/L 136-145 N POTASSIUM (test code = K) 3.7 mmol/L 3.5-5.1 N CHLORIDE (test code = CL) 101.0 mmol/L 98-107 N CARBON DIOXIDE (test code = CO2) mmol/L 21-32 ANION GAP (test code = GAP) 10-20 GLUCOSE (test code = GLU) mg/dL 74-106 BLOOD UREA NITROGEN (test code = BUN) mg/dL 7-18 GLOMERULAR FILTRATION RATE (test code = GFR) mL/min >=60 CREATININE (test code = CREAT) mg/dL 0.55-1.02 BUN/CREATININE RATIO (test code = BUN/CREA) 10-20 CALCIUM (test code = CA) mg/dL 8.5-10.1 CBC W/AUTO [id number] 15:43:00* Test Item Value Reference Range Interpretation Comments WHITE BLOOD CELL (test code = WBC) 9.3 K/mm3 4.5-12.5 N RED BLOOD CELL (test code = RBC) 4.09 mill/mm3 3.7-5.2 N HEMOGLOBIN (test code = HGB) 11.2 gram/dL 11.5-15.5 L HEMATOCRIT (test code = HCT) 37.0 % 36.0-46.0 N MEAN CELL VOLUME (test code = MCV) 90.5 fL 80-98 N MEAN CELL HGB (test code = MCH) 27.4 picogram 27.0-33.0 N MEAN CELL HGB CONCETRATION (test code = MCHC) 30.3 gram/dL 33.0-36. 0 L RED CELL DISTRIBUTION WIDTH (test code = RDW) 13.2 % 11.6-16. 2 N RED CELL DISTRIBUTION WIDTH SD (test code = RDW-SD) 43.9 fL 37 .0-51.0 N PLATELET COUNT (test code = PLT) 327 K/mm3 150-450 N MEAN PLATELET VOLUME (test code = MPV) 10.8 fL 6.7-11.0 N NEUTROPHIL % (test code = NT%) 44.0 % 39.0-69.0 N IMMATURE GRANULOCYTE % (test code = IG%) 0.2 % 0.0-5.0 N LYMPHOCYTE % (test code = LY%) 46.1 % 25.0-55.0 N MONOCYTE % (test code = MO%) 7.1 % 0.0-10.0 N EOSINOPHIL % (test code = EO%) 2.0 % 0.0-5.0 N BASOPHIL % (test code = BA%) 0.6 % 0.0-1.0 N NUCLEATED RBC % (test code = NRBC%) 0.0 % 0-0 N NEUTROPHIL # (test code = NT#) 4.09 K/mm3 1.8-7.7 N IMMATURE GRANULOCYTE # (test code = IG#) 0.02 x10 3/uL 0-0.03 N LYMPHOCYTE # (test code = LY#) 4.30 K/mm3 1.0-5.0 N MONOCYTE # (test code = MO#) 0.66 K/mm3 0-0.8 N EOSINOPHIL # (test code = EO#) 0.19 K/mm3 0.0-0.5 N BASOPHIL # (test code = BA#) 0.06 K/mm3 0.0-0.2 N NUCLEATED RBC # (test code = NRBC#) 0.00 K/mm3 0.0-0.1 N MANUAL DIFF REQUIRED (test code = MDIFF) NO CBC W/AUTO [id number] 15:41:00* Test Item Value Reference Range Interpretation Comments WHITE BLOOD CELL (test code = WBC) K/mm3 4.5-12.5 RED BLOOD CELL (test code = RBC) mill/mm3 3.7-5.2 HEMOGLOBIN (test code = HGB) gram/dL 11.5-15.5 HEMATOCRIT (test code = HCT) 37.0 % 36.0-46.0 N MEAN CELL VOLUME (test code = MCV) fL 80-98 MEAN CELL HGB (test code = MCH) picogram 27.0-33.0 MEAN CELL HGB CONCETRATION (test code = MCHC) gram/dL 33.0-36. 0 RED CELL DISTRIBUTION WIDTH (test code = RDW) % 11.6-16. 2 RED CELL DISTRIBUTION WIDTH SD (test code = RDW-SD) fL 37 .0-51.0 PLATELET COUNT (test code = PLT) K/mm3 150-450 MEAN PLATELET VOLUME (test code = MPV) fL 6.7-11.0 NEUTROPHIL % (test code = NT%) % 39.0-69.0 IMMATURE GRANULOCYTE % (test code = IG%) % 0.0-5.0 LYMPHOCYTE % (test code = LY%) % 25.0-55.0 MONOCYTE % (test code = MO%) % 0.0-10.0 EOSINOPHIL % (test code = EO%) % 0.0-5.0 BASOPHIL % (test code = BA%) % 0.0-1.0 NEUTROPHIL # (test code = NT#) K/mm3 1.8-7.7 LYMPHOCYTE # (test code = LY#) K/mm3 1.0-5.0 MONOCYTE # (test code = MO#) K/mm3 0-0.8 EOSINOPHIL # (test code = EO#) K/mm3 0.0-0.5 BASOPHIL # (test code = BA#) K/mm3 0.0-0.2 - US ABDOMEN [id number] 09:15:00 Name: JANNET GALVAN [facility] : 1955 Age/S: 63 / F [address] [facility] Unit #: [id number] Loc: [place] [address] Phys: Medardo Farnsworth Jr, MD Acct: [id number] Dis Date: Status: REG CLI PHONE #: [phone] Exam Date: 12/16/2018854 FAX #: [phone] Reason: K43.9 EXAMS: CPT CODE: [id number] US ABDOMEN COMPLETE 88138 HISTORY: K43.9. COMPARISON: CT abdomen and pelvis from October 12, 2016. The liver is hyperechogenic suggesting diffuse fibrofatty infiltration which limits evaluation for intrahepatic mass however no discrete lesions. The liver measuring 18.7 cm in length. No intra or extrahepatic biliary ductal dilatation. CBD is normal at 5.7 mm. Main portal vein is patent with hepatopedal flow and normal spectral waveform. Patient is post cholecystectomy. No ascites. Kidneys are free from hydroureteronephrosis. No calyceal stones. Right kidney is measuring 10 cm in length. Left kidney measuring 10 cm in length as well. Spleen is poorly visible measuring 11.8 cm in length. Visualized portions of the IVC, aorta and pancreas are normal however imaged incompletely. IMPRESSION: Patient is post cholecystectomy. Fibrofatty infiltrated liver with mild hepatomegaly. Unremarkable spleen and kidneys. at 0915 Reported and signed by: Nazario Cota M.D. CC: Medardo Farnsworth Jr, MD Technologist: CLAUDIA MARRUFO RT(R),RDMS Trnscb Date/Time: 12/16/2018 (0915) t.SDR.TH4 Orig Print D/T: S: 12/16/2018 (0918) Probe: PAGE 1 Signed Report Glucose [Mass/volume] in Capillary [id number] 10:50:00* Test Item Value Reference Range Interpretation Comments Blood Glucose: mg/dl (test code = Blood Glucose: mg/dl) 210 [facility] [Units/volume] (viral load) in Serum or Plasma by Probe and signal amplification [id number] 16:11:00* Test Item Value Reference Range Interpretation Comments HCV RNA, quantitative real time PCR (bria t code = HCV RNA, quantitative real time PCR) <1.18 not detected not detected comment (test code = comment) [facility] [Units/volume] in Serum or [id number] 02:38:00* Test Item Value Reference Range Interpretation Comments TSH (test code = TSH) 0.75 mIU/L 0.40-4.50 [facility] panel - Serum or [id number] 22:03:00* Test Item Value Reference Range Interpretation Comments cholesterol, total (test code = cholesterol, total) 147 mg/dL <2 00 HDL cholesterol (test code = HDL cholesterol) 77 mg/dL >50 triglycerides (test code = triglycerides) 101 mg/dL <150 Cholesterol in LDL [Mass/volume] in Serum or Plasma (t est code = 2089-1) 52 mg/dL (calc) chol/HDLC ratio (test code = chol/HDLC ratio) 1.9 (calc) <5.0 non HDL cholesterol (test code = non HDL cholesterol) 70 mg/dL (ugo c) <130 [facility] 2000 panel - Serum or Plasma 2018-11-06 22:03:00* Test Item Value Reference Range Interpretation Comments glucose (test code = glucose) 172 mg/dL 65-99 H urea nitrogen (BUN) (test code = urea nitrogen (BUN)) 19 mg/dL 7-25 creatinine (test code = creatinine) 0.94 mg/dL 0.50-0.99 eGFR non-afr. mongolian (test code = eGFR non-afr. mongolian) 65 mL/min/1.73m2 > or = 60 eGFR (test code = eGFR ) 75 mL/min/1.73m2 > or = 60 BUN/creatinine ratio (test code = BUN/creatinine ratio) not applica ble 6-22 sodium (test code = sodium) 137 mmol/L 135-146 potassium (test code = potassium) 4.3 mmol/L 3.5-5.3 chloride (test code = chloride) 100 mmol/L 98-110 carbon dioxide (test code = carbon dioxide) 28 mmol/L 20-32 calcium (test code = calcium) 9.5 mg/dL 8.6-10.4 protein, total (test code = protein, total) 7.4 g/dL 6.1-8.1 albumin (test code = albumin) 4.2 g/dL 3.6-5.1 globulin (test code = globulin) 3.2 g/dL (calc) 1.9-3.7 albumin/globulin ratio (test code = albumin/globulin ratio) 1.3 (calc) 1.0-2.5 bilirubin, total (test code = bilirubin, total) 0.3 mg/dL 0.2-1. 2 alkaline phosphatase (test code = alkaline phosphatase) 66 U/L 33-130 AST (test code = AST) 15 U/L 10-35 ALT (test code = ALT) 19 U/L 6-29 [facility]Hemoglobin.total in [id number] 21:54:00* Test Item Value Reference Range Interpretation Comments Hemoglobin A1c/Hemoglobin.total in Blood (test code = 4548-4) 8.9 % of total HGB <5.7 H EAG (mg/dL) (test code = EAG (mg/dL)) 209 (calc) EAG (mmol/L) (test code = EAG (mmol/L)) 11.6 (calc) [facility] W Auto Differential panel - [id number] 20:55:00 * Test Item Value Reference Range Interpretation Comments white blood cell count (test code = white blood cell count) 8.3 thousand/uL 3.8-10.8 red blood cell count (test code = red blood cell count) 4.29 million/uL 3.80-5.10 hemoglobin (test code = hemoglobin) 11.9 g/dL 11.7-15.5 hematocrit (test code = hematocrit) 36.6 % 35.0-45.0 MCV (test code = MCV) 85.3 fL 80.0-100.0 MCH (test code = MCH) 27.7 pg 27.0-33.0 MCHC (test code = MCHC) 32.5 g/dL 32.0-36.0 RDW (test code = RDW) 12.8 % 11.0-15.0 platelet count (test code = platelet count) 311 thousand/uL 140-400 MPV (test code = MPV) 11.4 fL 7.5-12.5 absolute neutrophils (test code = absolute neutrophils) 4407 kishan ls/uL 1930-8436 absolute lymphocytes (test code = absolute lymphocytes) 2905 kishan ls/uL 850-3900 absolute monocytes (test code = absolute monocytes) 755 cells/uL 20 0-950 absolute eosinophils (test code = absolute eosinophils) 183 cells/u L 15-500 absolute basophils (test code = absolute basophils) 50 cells/uL 0- 200 neutrophils (test code = neutrophils) 53.1 % lymphocytes (test code = lymphocytes) 35.0 % monocytes (test code = monocytes) 9.1 % eosinophils (test code = eosinophils) 2.2 % basophils (test code = basophils) 0.6 % [facility] IG + HPV mRNA E6/[id number] 12:47:00* Test Item Value Reference Range Interpretation Comments clinical information: (test code = clinical information:) none give n LMP: (test code = LMP:) none given prev. Pap: (test code = prev. Pap:) none given prev. BX: (test code = prev. BX:) none given source: (test code = source:) none given statement of adequacy: (test code = statement of adequacy:) interpretation/result: (test code = interpretation/result:) comment: (test code = comment:) electronic test technician: (test code = electronic test technician:) comment (test code = comment) Human papilloma virus 16 and 18+45 E6+E7 mRNA [Identifier] in Cervix by RANCHO with probe detection (test code = 39630-4) not detected not detected [facility], IG + HPV mRNA E6/[id number] 12:47:00* Test Item Value Reference Range Interpretation Comments clinical information: (test code = clinical information:) none give n LMP: (test code = LMP:) none given prev. Pap: (test code = prev. Pap:) none given prev. BX: (test code = prev. BX:) none given source: (test code = source:) none given statement of adequacy: (test code = statement of adequacy:) interpretation/result: (test code = interpretation/result:) comment: (test code = comment:) electronic test technician: (test code = electronic test technician:) comment (test code = comment) Human papilloma virus 16 and 18+45 E6+E7 mRNA [Identifier] in Cervix by RANCHO with probe detection (test code = 26467-6) not detected not detected [facility] occult blood, [id number] 09:34:00* Test Item Value Reference Range Interpretation Comments fecal globin by immunochemistry (test code = fecal nimco bin by immunochemistry) not detected [facility] occult blood, [id number] 09:34:00* Test Item Value Reference Range Interpretation Comments fecal globin by immunochemistry (test code = fecal nimco bin by immunochemistry) not detected [facility] [Mass Ratio] in [id number] 15:57:00* Test Item Value Reference Range Interpretation Comments microalbumin random urine (test code = microalbumin random urine) 1 38 ug/mL creatinine random urine (test code = creatinine random urine ) 308.9 mg/dL 20.0-320.0 microalbumin/creatinine (random urine) r atio calculated (test code = microalbumin/creatinine (random urine) ratio calculated) 45 mcg/mg creat H [facility] [Mass Ratio] in [id number] 15:57:00* Test Item Value Reference Range Interpretation Comments microalbumin random urine (test code = microalbumin random urine) 1 38 ug/mL creatinine random urine (test code = creatinine random urine ) 308.9 mg/dL 20.0-320.0 microalbumin/creatinine (random urine) r atio calculated (test code = microalbumin/creatinine (random urine) ratio calculated) 45 mcg/mg creat H [facility]Creatinine [Mass Ratio] in [id number] 15:57:00* Test Item Value Reference Range Interpretation Comments microalbumin random urine (test code = microalbumin random urine) 1 38 ug/mL creatinine random urine (test code = creatinine random urine ) 308.9 mg/dL 20.0-320.0 microalbumin/creatinine (random urine) r atio calculated (test code = microalbumin/creatinine (random urine) ratio calculated) 45 mcg/mg creat H [facility] macro (dipstick) panel - [id number] 14:20:00* Test Item Value Reference Range Interpretation Comments Color Color (test code = Color Color) light yellow Color Appearance (test code = Color Appearance) clear Color Glucose (test code = Color Glucose) negative Color Bilirubin (test code = Color Bilirubin) small Color Ketones (test code = Color Ketones) negative Color Specific [place] (test code = Color Specific [place]) 1.025 Color Blood (test code = Color Blood) negative Color PH (test code = Color PH) 6.0 Color Protein (test code = Color Protein) 30 Color Urobilinogen (test code = Color Urobilinogen) 1 Color Nitrites (test code = Color Nitrites) negative Color Leukocytes (test code = Color Leukocytes) trace [facility] macro (dipstick) panel - [id number] 14:20:00* Test Item Value Reference Range Interpretation Comments Color Color (test code = Color Color) light yellow Color Appearance (test code = Color Appearance) clear Color Glucose (test code = Color Glucose) negative Color Bilirubin (test code = Color Bilirubin) small Color Ketones (test code = Color Ketones) negative Color Specific [place] (test code = Color Specific [place]) 1.025 Color Blood (test code = Color Blood) negative Color PH (test code = Color PH) 6.0 Color Protein (test code = Color Protein) 30 Color Urobilinogen (test code = Color Urobilinogen) 1 Color Nitrites (test code = Color Nitrites) negative Color Leukocytes (test code = Color Leukocytes) trace [facility] macro (dipstick) panel - [id number] 14:20:00* Test Item Value Reference Range Interpretation Comments Color Color (test code = Color Color) light yellow Color Appearance (test code = Color Appearance) clear Color Glucose (test code = Color Glucose) negative Color Bilirubin (test code = Color Bilirubin) small Color Ketones (test code = Color Ketones) negative Color Specific [place] (test code = Color Specific [place]) 1.025 Color Blood (test code = Color Blood) negative Color PH (test code = Color PH) 6.0 Color Protein (test code = Color Protein) 30 Color Urobilinogen (test code = Color Urobilinogen) 1 Color Nitrites (test code = Color Nitrites) negative Color Leukocytes (test code = Color Leukocytes) trace [facility] PracticeGlucose [Mass/volume] in Capillary [id number] 12:27:00* Test Item Value Reference Range Interpretation Comments Blood Glucose: mg/dl (test code = Blood Glucose: mg/dl) [address] [facility] PracticeGlucose [Mass/volume] in Capillary [id number] 12:27:00* Test Item Value Reference Range Interpretation Comments Blood Glucose: mg/dl (test code = Blood Glucose: mg/dl) [address] [facility] PracticeGlucose [Mass/volume] in Capillary [id number] 12:27:00* Test Item Value Reference Range Interpretation Comments Blood Glucose: mg/dl (test code = Blood Glucose: mg/dl) [address] [facility] PracticeGlucose [Mass/volume] in Capillary [id number] 12:27:00* Test Item Value Reference Range Interpretation Comments Blood Glucose: mg/dl (test code = Blood Glucose: mg/dl) [address] [facility] PracticeURINE AND [id number] 02:17:0012[facility] QTJQC6112-51-36 02:17:001[facility] [id number] 02:17:00 Negative (08/04/17 8:17 PM)[facility] ZPVCM5405-26-33 02:17:00 Small *ABN*(08/04/17 8:17 PM)[facility] LNRZZ3231-61-98 02:17:00 Slight *ABN*(08/04/17 8:17 PM)[facility] TPWYK2572-27-44 02:17:00 5.0[facility] KTTMZ4694-93-75 02:17:00Negative (08/04/17 8:17 PM) [facility] ZGZKR9819-93-18 02:17:00Negative *NA*(08/04/17 8:17 PM) [facility] DHAEZ3227-70-33 02:17:001.014[facility]annCHEM UPQLT8199-07-44 20:31:000.11[facility] XtihjzlRNGKJFZPZDCB5336-18-47 20:31:009.2 [facility] YkvjvfxAPZCDYGGGALI2164-43-78 20:31:0043[facility] HermannELECTROLYTES 2017-08-04 20:31:0098[facility] AidwvxjOYAEXMUGNVCN0104-25-83 20:31:009.7[facility] PtqjoepGWVBTVFLXKLK3832-72-39 20:31:004.2[facility] DoliawwNGHOAXYTHHAH1884-92-10 20:31:48493Ojrbrltp DobtabyJTTFEEUZSCKN6529-97-55 20:31:0029[facility] CFWTRKUJVFTG4441-38-10 20:31:001.50[facility] ZoembzrHMJSHMLRLZAN1237-70-38 20:31:51349Kbrfmpar QzmbybcMLIHONGQBSWQ7988-19-84 20:31:0035[facility] HNBPKTNFMS3227-02-46 20:31:000.2[facility] TdorfnyNCLFQSUTFN4672-81-53 20:31:000.1 [facility] OvwkduoNCBWYPUHGY7032-86-27 20:31:0041.5[facility]annHEMATOLOGY 2017-08-04 20:31:0047.3[facility] KzvggcrQWSPMNCMVN0058-45-26 20:31:000.6[facility] KbtsvfyDNMTNJRPXH3982-90-72 20:31:003.9[facility] JqqzqivMCJWGFOPBA7377-54-60 20:31:003.4[facility] FbvfdlzRLEJYKOFKU9919-43-60 20:31:001.1[facility] JMFRVRCHFK1663-70-28 20:31:007.6[facility] XufptwtMSPIILQSKO4378-87-91 20:31:002.5 [facility] QkzolgvXHXNKMWLLN8130-73-67 20:31:00* Test Item Value Reference Range Interpretation Comments MCH (test code = MCH) 28.0 pg 27.0-31.0 [facility] TjlmtzxTJFQXDLZMT2896-46-71 20:31:0086.6[facility]annHEMATOLOGY 2017-08-04 20:31:0032.4[facility] XuldzraXFNRIPDWVZ9557-61-96 20:31:0013.6[facility] UrfeqalYKYUOBIPFN5964-34-93 20:31:0037.6[facility] IbtnnjyKZDVQGMPDB7463-76-20 20:31:44930Zxptvouf XgyvhtzGEUCZCKZXI3613-83-40 20:31:009.9[facility] YOEOVMQPYZ1117-84-67 20:31:0012.2[facility] JsjjbqnOHOBAKRFHS8557-16-95 20:31:00 4.34[facility] BpmngzpMBQWCIYVXN7238-99-94 20:31:008.2[facility]annCHEM PANEL 2017-07-30 16:55:0052[facility]annCHEM HBJFE1856-80-12 16:55:0015.1[facility]annCHEM LMRYG0211-34-52 16:55:009.2[facility]annCHEM JULML1462-50-32 16:55:0024[facility]annCHEM FICFG1483-41-26 16:55:0097[facility]annCHEM CEKEL7584-88-35 16:55:004.1[facility]annCHEM MHWSP3944-45-94 16:55:0022 [facility]annCHEM FYPIY3373-70-71 16:55:28749Hrpoayqq HermannCHEM PANEL 2017-07-30 16:55:001.29[facility]annCHEM ARUFA9822-99-09 16:55:28706Pltuejec Pablo[] VITAMIN B12/FOLATE, SERUM [id number] 08:52:00* Test Item Value Reference Range Interpretation Comments Vitamin B12 (test code = Vitamin B12) 628 pg/mL 211-946 Folate (Folic Acid), Serum (test code = Folate (Folic Acid), Serum) 8.7 ng/mL >3.0 A serum folate concentration of less than 3.1 ng/mL isconsidered to represent clinical deficiency. [facility]] VITAMIN E (TOCOPHEROL)2017-07-29 08:52:00* Test Item Value Reference Range Interpretation Comments Vitamin E(Alpha Tocopherol) (test code = Vitamin E(Alpha Dilan opherol)) 7.4 mg/L 5.3-16.8 [facility]] VITAMIN D, 25-HYDROXY, LC/MS/[id number] 08:52:00* Test Item Value Reference Range Interpretation Comments Vitamin D, 25-Hydroxy (test code = Vitamin D, 25-Hydroxy) 11.0 n g/mL 30.0-100.0 Vitamin D deficiency has been defined by the [place] ofMedicine and an Endocrine Society practice guideline as alevel of serum 25-OH vitamin D less than 20 ng/mL (1,2).The Endocrine Society went on to further define vitamin Dinsufficiency as a level between 21 and 29 ng/mL (2).1. IOM ([place] of [employer]). 2010. Dietary reference intakes for calcium and D. [place]: The National Academies Press.2. Aime HIRSCH, Renae FREIRE, Neda THOMPSON, et al. Evaluation, treatment, and prevention of vitamin D deficiency: an Endocrine Society clinical practice guideline. JCEM. 2010; 96(7):1911-30. [facility]] VITAMIN B1, WHOLE [id number] 08:52:00* Test Item Value Reference Range Interpretation Comments Vit. B1, Whole Blood (test code = Vit. B1, Whole Blood) 73.5 nmo l/L 66.5-200.0 This test was developed and its performa nce characteristicsdetermined by [facility]. It has not been cleared or approvedby the Food and Drug Administration. [facility]] IRON, [id number] 08:52:00* Test Item Value Reference Range Interpretation Comments Iron, Serum (test code = Iron, Serum) 68 ug/dL 27-159 [facility]] PTH, INTACT (WITHOUT CALCIUM)2017-07-29 08:52:00* Test Item Value Reference Range Interpretation Comments PTH, Intact (test code = PTH, Intact) 49 pg/mL 15-65 [facility]] VITAMIN A (RETINOL)2017-07-29 08:52:00* Test Item Value Reference Range Interpretation Comments Vitamin A, Serum (test code = Vitamin A, Serum) 50 ug/dL 20-65 [facility] ENIDSSZ6193-81-58 07:13:000.11[facility]annCHEM IUVLJ2536-22-31 07:13:0043[facility]annCHEM QHKAA5438-83-54 07:13:75191Xqazeobn HermannCHEM HJIYX0711-02-97 07:13:001.50[facility]annCHEM AJVKK3803-34-82 07:13:004.0[facility]annCHEM IWWID4049-29-59 07:13:31982 [facility]annCHEM TGRZX6009-87-14 07:13:0027[facility]annCHEM PANEL 2017-07-16 07:13:61166Pmqtuakk HermannCHEM DKJJE8490-89-37 07:13:009.1[facility] HermannCHEM SEIGG0122-41-72 07:13:0030[facility] HermannCHEM LJTMZ7006-19-97 07:13:0012.0[facility] AND QAIIW3310-61-77 04:47:005.0[facility] AND TAOFI0779-33-51 04:47:001.026[facility] STOOL 2017-07-16 04:47:00Marked *ABN*(07/15/17 11:47 PM)[facility] TZVTQ1867-43-91 04:47:007[facility] NFOOU8519-84-72 04:47:00 Negative (07/15/17 11:47 PM)[facility] HNPJF3581-49-05 04:47:00 Large *ABN*(07/15/17 11:47 PM)[facility] UUFVR6093-91-69 04:47:00 3[facility] AND PMMFT9560-46-19 04:47:0032[facility] BFJPJ0633-10-46 04:47:00Negative (07/15/17 11:47 PM)[facility] OWVXN2901-12-56 04:47:004.0[facility] USBYF0991-89-68 04:47:00 Negative *NA*(07/15/17 11:47 PM)[facility]annCARDIAC YECXFNC4536-70-02 04:09:000.7[facility]annCARDIAC YKAPBVF1261-91-15 04:09:000.11[facility]annCARDIAC DMRVXWW5164-05-15 04:09:002.9[facility]annCARDIAC ENZYMES 2017-07-16 04:09:56794Prwmgzqt HermannCHEM VOKBP6512-82-52 04:09:0037[facility] HermannCHEM STAQL5838-54-29 04:09:005.0[facility]annCHEM NTIOA9937-47-41 04:09:000.8[facility] HermannCHEM GXBGS6810-88-09 04:09:0032[facility]annCHEM AGUPQ1842-42-98 04:09:0014.2[facility] HermannCHEM KCQUG1515-68-81 04:09:0077 [facility]annCHEM RIVCV9255-73-75 04:09:0018[facility] HermannCHEM PANEL 2017-07-16 04:09:000.3[facility] HermannCHEM RIUGX3751-54-28 04:09:0026[facility]annCHEM FYFBO9114-93-96 04:09:008.9[facility]annCHEM DNDDJ9311-65-23 04:09:003.9[facility]annCHEM MDXKF5552-95-48 04:09:0026[facility]annCHEM ANPMP4164-49-42 04:09:001.70[facility]annCHEM AWLAB3951-20-27 04:09:009.5 [facility]annCHEM REKXX1924-29-22 04:09:0099[facility] HermannCHEM PANEL 2017-07-16 04:09:31131Srqtpyjg HermannCHEM ZTXMW2705-49-74 04:09:97023Yjsigfmd HermannCHEM UXIXF9123-98-77 04:09:0030[facility] HermannCHEM CCCGS8406-46-92 04:09:004.2[facility] ZijfpyeYNREKBJSXA3554-89-74 04:09:009.2[facility] NXASMHLBPG1023-06-53 04:09:001.3[facility] VubbyaqRSBNWBBUYU9667-94-87 04:09:00 27.0[facility] UidgcnwHKDUDFQDCI8253-65-41 04:09:0061.7[facility] HermannHEMATOLOGY 2017-07-16 04:09:003.1[facility] ElgpvflFKRHZPQHJC6787-19-65 04:09:007.1[facility] WfjifocRBQLEXOHFZ4079-62-13 04:09:000.8[facility] McqfpeiMTYKPRLJRE3364-85-16 04:09:000.1[facility] AwwmhqqYZMQFRLUDK1055-24-72 04:09:000.2[facility] YOWPJDYMVE6657-26-95 04:09:001.1[facility] MoacjtfLXTYOKDIUV3547-81-45 04:09:00 4.46[facility] WooibsrQLELXVKFCL2498-59-82 04:09:0011.4[facility] HermannHEMATOLOGY 2017-07-16 04:09:0085.4[facility] DgexsmeQXHQHMMRCZ5498-48-67 04:09:0038.0[facility] EiaxiarFLLYXUDAYW5314-74-84 04:09:0012.3[facility] QrcnyeiZUWFGHWQPD0545-70-62 04:09:009.3[facility] YkeydodHNWVXUNBYQ2112-45-93 04:09:0014.1[facility] OBVVTAQJRY6883-21-52 04:09:34952Seuyaary EnntwdgQYXMKCTXFM8538-97-18 04:09:00* Test Item Value Reference Range Interpretation Comments MCH (test code = MCH) 27.7 pg 27.0-31.0 [facility] KjbilxrFYHJVUQUPM6429-89-64 04:09:0032.4[facility] HermannTobacco Use Cjvtpstxl4683-58-70 19:00:00* Test Item Value Reference Range Interpretation Comments Completed (test code = Completed) DONE [facility]iciansCHE[facility] LTQJX1956 14:06:0030[facility] CHEM BDKJB3171-22-47 14:06:0017[facility] HermannCHEM EMWTA5772-94-81 14:06:008.0 [facility]annCHEM AJUCY5233-73-53 14:06:003.5[facility] HermannCHEM PANEL 2016-02-23 14:06:0065[facility] HermannCHEM OBGKF8818-38-51 14:06:004.5[facility] HermannCHEM JOZZR5319-13-90 14:06:000.8[facility] HermannCHEM XJOBO1410-83-61 14:06:000.2[facility] HermannCHEM RVTVD7492-66-89 14:06:000.3[facility] HermannCHEM HVDGM4382-80-15 14:06:000.1[facility] HermannCHEM YJFMT8664-51-58 11:55:001.8 [facility]annCHEM DKOCH2107-23-65 11:55:0070[facility] HermannCHEM PANEL 2016-02-23 11:55:52791Vitousdk HermannCHEM FCFTP1227-62-87 11:55:47890Uoedlqaj HermannCHEM TONVX0246-67-14 11:55:001.02[facility] HermannCHEM JRWUL3593-82-98 11:55:004.1[facility]annCHEM IKDMF4302-71-87 11:55:0027[facility]annCHEM CLFST2106-68-62 11:55:009.4[facility] HermannCHEM UGATE5496-94-58 11:55:41305 [facility]annCHEM SNCML9777-85-10 11:55:0023[facility] HermannCHEM PANEL 2016-02-23 11:55:0012.1[facility] JiudafkXWGIMIDBBA8999-62-49 11:55:009.3[facility] BzkseywMVRWBSUSDT8482-43-80 11:55:33441Vecoijym DuefjemQVWVNQFGEB7419-00-18 11:55:0014.5[facility] TrqjwunYHLOCRDVQJ4291-99-12 11:55:0032.5[facility] RGTQOTKEPI6497-94-37 11:55:00* Test Item Value Reference Range Interpretation Comments MCH (test code = MCH) 27.1 pg 27.0-31.0 [facility] UuzlzvcXYOWSBGEIT5336-96-15 11:55:0083.3[facility] HermannHEMATOLOGY 2016-02-23 11:55:0032.6[facility] TtscgunEQMQAZLESC1574-00-30 11:55:0010.6[facility] QheeomlQKZRNHSYPV1253-33-82 11:55:003.91[facility] TyjtmnwAAYVZIKJIB1030-63-05 11:55:008.4[facility] XbnawojHDYBEUGWOF9713-87-18 11:55:000.1[facility] ZADFROOTJM0266-72-40 11:55:000.7[facility] YzscjawVXCDWWWQJK6701-72-17 11:55:000.3 [facility] DlkwzvsCLRLMLQBJM0202-54-51 11:55:002.6[facility] HermannHEMATOLOGY 2016-02-23 11:55:003.2[facility] CxdejwlJIGGHGDSRI7784-09-61 11:55:004.8[facility] MwlfbdlTDSPFNDEFS3736-49-15 11:55:000.7[facility] JcowjogYHEOLPDGID9921-85-79 11:55:008.4[facility] JgjrmmtFCAZNJALFJ7050-73-43 11:55:0030.5[facility] PWKRRXWHYW8138-42-28 11:55:0057.2[facility] KvcriivGJTNRAIPAB0951-38-85 11:55:00 1.04[facility] LwmkwolADUXNDOCUT6255-55-73 11:55:00* Test Item Value Reference Range Interpretation Comments PTT (test code = PTT) 29.7 s 22.9-35.8 [facility] PbuwfhiIYPFNROBDC1855-97-26 11:55:00* Test Item Value Reference Range Interpretation Comments PT (test code = PT) 13.9 s 12.0-14.7 [facility] BANK UGCZNYP5957-03-61 11:30:00Negative (02/23/16 6:30 AM) [facility]
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
== END 2020-05-26 13:52 | disposition home or self-care (01) ==
LOC: FSED 13:50
DX: R04.0 Epistaxis (principal); I10 Essential (primary) hypertension; E11.9 Type 2 diabetes mellitus without complications; I50.9 Heart failure, unspecified; Z85.3 Personal history of malignant neoplasm of breast
CPT/HCPCS: 99283; Q0162